=== PATIENT | male | born 1955 | race Caucasian/White ===

== ENCOUNTER 2023-03-21 16:50 | Outpatient (CLI) | payer OTHER, SELFPAY ==
--- NOTE | 2023-03-21 | CT_ITS ---
WS: [id number] CT LUMBAR SPINE TECHNIQUE: Noncontrast CT of the lumbar spine with coronal and sagittal reformatted images. CLINICAL INFORMATION: LOW BACK PAIN COMPARISON: None. DLP: 379.[address] scans at [facility] use at least one of these dose optimization techniques: automated e xposure control; mA and/or kV adjustment per patient size (includes targeted exams where dose is matc hed to clinical indication); or iterative reconstruction. FINDINGS: Mild lumbar curve. No acute compression. Moderate spondylitic changes lumbar spine. Disc space narrow ing throughout the lumbar spine worse at L4-L5 and L5-S1 with endplate degenerative changes. Hypertro phic changes lumbar spine. Adrenal glands are normal. Aortic calcification. L1-L2: Disc osteophyte complex endplate ridging. Slight effacement of ventral thecal sac. Mild centra l canal stenosis. Moderate LEFT foraminal narrowing. Mild RIGHT foraminal narrowing. L2-L3: Disc osteophyte complex with endplate ridging. Moderate central canal stenosis with slight imp ingement subarticular recess bilaterally. Moderate bilateral foraminal narrowing with mild facet arth ropathy. L3-L4: Disc osteophyte complex with moderate central canal stenosis. Moderate facet arthropathy ligam entum flavum hypertrophy. Moderate bilateral foraminal narrowing. Impingement on the exiting RIGHT L3 nerve root. L4-L5: Disc osteophyte complex with endplate ridging. Mild central canal stenosis. Moderate facet art hropathy. Moderate RIGHT and mild LEFT foraminal narrowing. Impingement on the exiting RIGHT L4 nerve root. L5-S1: Disc osteophyte complex with endplate ridging. Slight contact of the S1 nerve roots. Spinal ca nal is patent. Moderate facet arthropathy. Moderate bilateral foraminal narrowing RIGHT greater than LEFT. Visualized pelvic bony structures: Normal. Paravertebral soft tissues: Normal. CT/CT lumbar spine wo con* [id number] IMPRESSION: 1. Moderate spondylitic changes lumbar spine with disc space narrowing L1-L5 w orse L4-L5 and L5-S1. 2. Mild central canal stenosis L1-L2. Moderate central canal stenosis L2-L3 an d L3-L4 worse at L3-L4 due to disc osteophyte complexes with small central prot rusions. Moderate facet arthropathy with ligamentum flavum hypertrophy contribu ana to stenosis. 3. Mild central canal stenosis L4-L5. 4. Multilevel moderate bony foraminal narrowing worse at LEFT L1-L2, RIGHT L2- L3, bilateral L3-L4, RIGHT L4-L5 and RIGHT greater than LEFT L5-S1.
== END 2023-03-21 16:51 | disposition home or self-care (01) ==
PROVIDERS: PCP Family Medicine; Visit Provider Nurse Practitioner
DX: M54.51 Vertebrogenic low back pain (principal); M47.816 Spondylosis without myelopathy or radiculopathy, lumbar region; M48.061 Spinal stenosis, lumbar region without neurogenic claudication; M25.78 Osteophyte, vertebrae
CPT/HCPCS: 72131

== ENCOUNTER → 2025-03-16 13:08 | Outpatient (BNVA) | payer OTHER, SELFPAY | PROVIDERS: PCP Family Medicine; Referring Provider Family Medicine; Visit Provider Nurse Practitioner Family | DX: M54.16 Radiculopathy, lumbar region (principal); G89.29 Other chronic pain; M51.362 Other intervertebral disc degeneration, lumbar region with discogenic back pain and lower extremity pain | CPT/HCPCS: 99214 ==

== ENCOUNTER → 2025-03-23 14:01 | Outpatient (BNVA) | payer OTHER, SELFPAY | PROVIDERS: PCP Family Medicine; Visit Provider Nurse Practitioner Family | DX: M79.10 Myalgia, unspecified site (principal); M51.362 Other intervertebral disc degeneration, lumbar region with discogenic back pain and lower extremity pain; M54.16 Radiculopathy, lumbar region; G89.29 Other chronic pain | CPT/HCPCS: 20553; 99214; J1010; J3490 ==

== ENCOUNTER → 2025-04-06 14:17 | Outpatient (BNVA) | payer OTHER, SELFPAY | PROVIDERS: PCP Family Medicine; Visit Provider Nurse Practitioner Family | DX: M51.362 Other intervertebral disc degeneration, lumbar region with discogenic back pain and lower extremity pain (principal); M54.16 Radiculopathy, lumbar region; G89.29 Other chronic pain | CPT/HCPCS: 99214 ==

== ENCOUNTER → 2025-04-27 09:30 | Outpatient (BNVA) | payer OTHER, SELFPAY | PROVIDERS: PCP Family Medicine; Visit Provider Nurse Practitioner Family | DX: M51.362 Other intervertebral disc degeneration, lumbar region with discogenic back pain and lower extremity pain (principal); M54.16 Radiculopathy, lumbar region; G89.29 Other chronic pain | CPT/HCPCS: 99214 ==

== ENCOUNTER → 2025-05-05 08:53 | Outpatient (BNVA) | payer OTHER, SELFPAY | PROVIDERS: PCP Family Medicine; Visit Provider Anesthesiology Pain Medicine | DX: M54.16 Radiculopathy, lumbar region (principal); M51.362 Other intervertebral disc degeneration, lumbar region with discogenic back pain and lower extremity pain; M54.9 Dorsalgia, unspecified | CPT/HCPCS: 64483; 64484; J1100; J3490; J9999 ==

== ENCOUNTER → 2025-05-19 08:37 | Outpatient (BNVA) | payer OTHER, SELFPAY | PROVIDERS: PCP Family Medicine; Visit Provider Nurse Practitioner Family | DX: M51.362 Other intervertebral disc degeneration, lumbar region with discogenic back pain and lower extremity pain (principal); M54.16 Radiculopathy, lumbar region; G89.29 Other chronic pain | CPT/HCPCS: 99214 ==

== ENCOUNTER → 2025-06-02 14:23 | Outpatient (BNVA) | payer OTHER, SELFPAY | PROVIDERS: PCP Family Medicine; Visit Provider Anesthesiology Pain Medicine | DX: M47.816 Spondylosis without myelopathy or radiculopathy, lumbar region (principal); M51.362 Other intervertebral disc degeneration, lumbar region with discogenic back pain and lower extremity pain | CPT/HCPCS: 64493; 64494; 64495; J3490; J9999 ==

== ENCOUNTER → 2025-06-17 13:43 | Outpatient (BNVA) | payer OTHER, SELFPAY | PROVIDERS: PCP Family Medicine; Visit Provider Nurse Practitioner Family | DX: M51.362 Other intervertebral disc degeneration, lumbar region with discogenic back pain and lower extremity pain (principal); M54.16 Radiculopathy, lumbar region; G89.29 Other chronic pain | CPT/HCPCS: 99214 ==

== ENCOUNTER → 2025-07-06 13:03 | Outpatient (BNVA) | payer OTHER, SELFPAY | PROVIDERS: PCP Family Medicine; Visit Provider Anesthesiology Pain Medicine | DX: M47.816 Spondylosis without myelopathy or radiculopathy, lumbar region (principal) | CPT/HCPCS: 64493; 64494; 64495; J3490; J9999 ==

== ENCOUNTER → 2025-07-13 10:04 | Outpatient (BNVA) | payer OTHER, SELFPAY | PROVIDERS: PCP Family Medicine; Visit Provider Nurse Practitioner Family | DX: M51.362 Other intervertebral disc degeneration, lumbar region with discogenic back pain and lower extremity pain (principal); M54.16 Radiculopathy, lumbar region; G89.29 Other chronic pain | CPT/HCPCS: 99214 ==

== ENCOUNTER → 2025-08-03 14:53 | Outpatient (BNVA) | payer OTHER, SELFPAY | PROVIDERS: PCP Family Medicine; Visit Provider Anesthesiology Pain Medicine | DX: M47.816 Spondylosis without myelopathy or radiculopathy, lumbar region (principal) | CPT/HCPCS: 64635; 64636; J1100; J9999 ==

== ENCOUNTER → 2025-08-17 13:00 | Outpatient (BNVA) | payer OTHER, SELFPAY | PROVIDERS: PCP Family Medicine; Visit Provider Anesthesiology Pain Medicine | DX: M47.816 Spondylosis without myelopathy or radiculopathy, lumbar region (principal) | CPT/HCPCS: 64635; 64636; J1100; J9999 ==

== ENCOUNTER 2025-08-24 15:45 | Outpatient (CLI) | payer OTHER, SELFPAY | END 2025-08-24 15:46 | disposition home or self-care (01) | LOC: SPT 15:46 | PROVIDERS: PCP Family Medicine; Visit Provider Podiatrist Foot & Ankle Surgery | DX: Z46.89 Encounter for fitting and adjustment of other specified devices (principal); M76.61 Achilles tendinitis, right leg | CPT/HCPCS: L4361 ==

== ENCOUNTER → 2025-08-31 09:42 | Outpatient (BNVA) | payer OTHER, SELFPAY | PROVIDERS: PCP Family Medicine; Visit Provider Surgery | DX: Z12.11 Encounter for screening for malignant neoplasm of colon (principal); M51.362 Other intervertebral disc degeneration, lumbar region with discogenic back pain and lower extremity pain; G62.89 Other specified polyneuropathies; M54.16 Radiculopathy, lumbar region | CPT/HCPCS: 99204; 99214 ==

== ENCOUNTER 2025-09-23 08:27 | Day surgery (SDC) | payer OTHER, SELFPAY ==
[2025-09-23 08:37] VITALS: BMI 24.3
[2025-09-23 08:43] VITALS: BP 154/71; PULSE 68; RESP 18; TEMP 36.1; O2SAT 98
--- NOTE | 2025-09-23 09:15 | W.PM.OPSUD ---
Surgery/Procedure H&P Update DATE OF PROCEDURE: September 23, 2025 DATE H&P PERFORMED: 08/31/25 H&P UPDATE INFORMATION: I have reviewed H&P completed within last 30 days, I have examined patient prior to procedure, No changes to prior documentation, H&P is in [facility] EMR on date indicated and Risks and benefits of the procedure reviewed PLANNED PROCEDURE: Operation Date: 09/23/25 09:45 Proposed Procedures p Colonoscopy [id number] G0105 Z12.11(Not Applicable) - Aristeo Cervantes MD
--- NOTE | 2025-09-23 09:29 | ANES.PREANE2 ---
Pre-Anesthetic Assessment Height/Weight: Height 1.75 m Weight 74.843 kg Temp Pulse Resp BP Pulse Ox O2 Del Method 97.0 F L 68 18 154/71 98 Room Air 09/23/25 08:43 09/23/25 08:43 09/23/25 08:43 09/23/25 08:43 09/23/25 08:43 09/23/25 08:43 Operation Date: 09/23/25 09:45 Proposed Procedures p Colonoscopy 38659 G0105 Z12.11(Not Applicable) - Aristeo Cervantes MD Was Beta Kostas taken within 24 hours: N/A Was Clonidine taken within 24 hours: N/A Last intake: Intake Last Liquid Date 09/22/25 Last Liquid Time 23:00 Last Solid Date 09/21/25 Exam alert, oriented x 3, clear to auscultation bilaterally and regular rate & rhythm Airway Submandibular: within normal limits Cervical ROM: within normal limits Mallampati: Class II History/ROS No significant history except as noted Pulmonary None reported CV/HEM pacemaker Musc/skel Lower Back Pain Anesthetic Plan ASA status: 3 Anesthesia: MAC Medications/Allergies Home Medications ?Medication ?Instructions ?Recorded ?Confirmed ?Last Taken ?Type No Known Home Medications 09/20/25 09/20/25 Unknown History Allergies Allergy/AdvReac Type Severity Reaction Status Date / Time No Known Allergies Allergy Verified 09/23/25 08:40 Current Medications Generic Name Dose Route Start Last Admin Trade Name Freq PRN Reason Stop Dose Admin Sodium Chloride 1,000 mls @ 15 mls/hr 09/23/25 08:29 09/23/25 08:44 Sodium Chloride 0.9% IV 09/24/25 08:28 15 mls/hr .Q24H PRN Administration COLONOSCOPY FLUIDS PFSH Anesthesia Family History Mother Cancer Father Alzheimer disease Social History Smoking and tobacco/nicotine status: never used tobacco/nicotine
[2025-09-23 10:00] VITALS: BP 102/57; PULSE 60; RESP 18; TEMP 36.2; O2SAT 98
[2025-09-23 10:10] VITALS: BP 117/71; PULSE 58; RESP 18; O2SAT 97
[2025-09-23 10:20] VITALS: BP 120/70; PULSE 60; RESP 18; O2SAT 97
--- NOTE | 2025-09-23 10:57 | ANE.PACU2 ---
Inpatient post-anesthesia follow up: Airway intact: Yes Vital signs: Temperature 97.1 F Pulse Rate 60 Respiratory Rate 18 Blood Pressure 120/70 Pulse Oximetry 97 Oxygen Delivery Me thod Room Air Oxygen Flow Rate Fraction of Inspir ed Oxygen Hydration adequate: Yes Nausea and vomiting: No Pain level: 1 Mental status: Baseline
== END 2025-09-23 10:57 | disposition home or self-care (01) ==
PROVIDERS: PCP Family Medicine; Visit Provider Surgery
PROC: 0DJD8ZZ Inspection of Lower Intestinal Tract, Via Natural or Artificial Opening Endoscopic (ICD-10-PCS; CPT 45378; principal; 2025-09-23 09:45)
DX: Z12.11 Encounter for screening for malignant neoplasm of colon (principal); D12.0 Benign neoplasm of cecum; D12.5 Benign neoplasm of sigmoid colon; D12.8 Benign neoplasm of rectum; Z95.0 Presence of cardiac pacemaker; Z80.9 Family history of malignant neoplasm, unspecified
CPT/HCPCS: 45385; 88305; J2704; J7030

== ENCOUNTER → 2025-10-05 12:41 | Outpatient (BNVA) | payer OTHER, SELFPAY | PROVIDERS: PCP Family Medicine; Visit Provider Podiatrist Foot & Ankle Surgery | DX: M67.88 Other specified disorders of synovium and tendon, other site (principal); M76.61 Achilles tendinitis, right leg | CPT/HCPCS: 99213 ==